=== PATIENT | female | born 1965 | race Caucasian/White ===

== ENCOUNTER 2017-07-26 18:46 | Emergency (ER) | payer OTHER ==
[~2017-07-26] VITALS: Ht 162.6 cm; Wt 88.5 kg
[2017-07-26 19:20] VITALS: Ht 162.6 cm; Wt 88.5 kg
[2017-07-26 21:11] VITALS: BP 143/61
== END 2017-07-26 21:11 | disposition home or self-care (01) ==
LOC: ED 18:46
DX: S93.402A Sprain of unspecified ligament of left ankle, initial encounter (principal); X50.1XXA Overexertion from prolonged static or awkward postures, initial encounter; Z88.6 Allergy status to analgesic agent; Y93.89 Activity, other specified; Y92.89 Other specified places as the place of occurrence of the external cause; Y99.8 Other external cause status